=== PATIENT | female | born 1955 | race Caucasian/White ===

== ENCOUNTER → 2019-11-23 | Outpatient (REF) | payer OTHER ==
[2019-11-27 14:07] LABS: ANTI-SACCHAROMYCES CEREV. IgA <20.0 Units (0.0-24.9); ANTI-SACCHAROMYCES CEREV. IgG <20.0 Units (0.0-24.9); TISSUE TRANSGLUTAMINASE IgA <2 U/mL (0-3)
== END ==
LOC: M LAB REF 17:12
PROVIDERS: ATTEND Nurse Practitioner Adult Health
DX: R19.7 Diarrhea, unspecified (principal)

== ENCOUNTER → 2020-05-23 | Outpatient (REF) | payer OTHER | LOC: M LAB REF 11:27 | PROVIDERS: ATTEND Internal Medicine Gastroenterology | DX: R19.7 Diarrhea, unspecified (principal) ==

== ENCOUNTER → 2020-05-28 | Outpatient (CLI) | payer OTHER ==
[~2020-05-28] MED LIST: GASTROGRAFIN SOLUTION 30ML (Q9963) As Ordered ONE; ISOVUE-370 76% 100ML VIAL As Ordered ONE
--- NOTE | 2020-05-29 05:29 | REP ---
INDICATION: DIVERTICULITIS, LLQ PAIN. COMPARISON: 12/19/2007 TECHNIQUE: Axial contrast-enhanced images from the lung bases to the pubic symphysis using 100 cc Isovue 370 intravenous contrast material. Coronal and sagittal reformations obtained.. This CT examination was performed using the following dose reduction techniques: Automated exposure control, adjustment of mA and/or kv according to the patient's size, and the use of iterative reconstruction technique. FINDINGS: Liver suggests fatty infiltration without focal hepatic lesion. Spleen, bilateral adrenal glands and kidneys are normal. Evidence for prior cholecystectomy. Stable 2.4 cm cystic lesion just inferior to the mid pancreatic body again noted. There is a very subtle area of pericolonic stranding surrounding diverticula at the level of the mid/distal sigmoid colon (images 113-118) which may reflect a mild acute or resolving diverticulitis. Remainder of the small and large bowel is unremarkable. Pelvis demonstrates normal bladder and age-appropriate uterus/adnexa with subtle heterogeneity to the myometrium suggesting the possibility of myomatous changes. No ascites. No free air. No intraperitoneal or retroperitoneal adenopathy. Abdominal aorta and vasculature appear normal. Musculoskeletal structures are intact and without acute osseous abnormality. IMPRESSION: 1. Very subtle findings involving the mid/distal sigmoid colon suggest a mild acute or resolving diverticulitis without associated abnormalities. No evidence for obstruction, perforation, or drainable collection/abscess. 2. Possible myomatous changes to the uterus. 3. Stable 2.4 cm cyst inferior to the mid pancreatic body unchanged compared to 2007. <Electronically signed by Ronald Truong > 05/29/20 0525
== END ==
LOC: M RAD 13:51
PROVIDERS: ATTEND Internal Medicine Gastroenterology
DX: K57.92 Diverticulitis of intestine, part unspecified, without perforation or abscess without bleeding (principal); R10.32 Left lower quadrant pain

== ENCOUNTER → 2020-09-22 | Outpatient (CLI) | payer OTHER ==
[~2020-09-22] MED LIST changes: +AMLO1TAB24 PO; +DERM1TAB2 PO; -GASTROGRAFIN SOLUTION 30ML (Q9963) As Ordered ONE; -ISOVUE-370 76% 100ML VIAL As Ordered ONE; +METO1TAB7 PO
== END ==
LOC: M LABSMTC 09:23
PROVIDERS: ATTEND Anesthesiology
DX: Z01.812 Encounter for preprocedural laboratory examination (principal); Z20.822 Contact with and (suspected) exposure to COVID-19

== ENCOUNTER 2020-09-27 09:17 | Day surgery (SDC) | payer OTHER ==
[~2020-09-27] VITALS: Ht 160 cm; Wt 74.8 kg
[~2020-09-27 09:17] MED LIST changes: +LIDOCAINE 2% 100MG/5ML SDV (FOR ANES.) As Ordered ONE; +NS 1,000 ML IV ONE; +propofoL 200 MG/20 ML VIAL As Ordered ONE
--- NOTE | 2020-09-27 11:14 | ROOR ---
Patient Name: Rivka Dallas Procedure Date: 09/27/2020 10:47 AM Date of : 1955 Age: 64 Room: [facility] Gender: Female Note Status: Finalized Procedure: Colonoscopy Indications: Abnormal CT of the GI tract Providers: Myles MCNEAL MD Referring MD: Stephanie Albrecht NP Requesting Provider: Medicines: Monitored Anesthesia Care Complications: No immediate complications. Procedure: Pre-Anesthesia Assessment: - The heart rate, respiratory rate, oxygen saturations, blood pressure, adequacy of pulmonary ventilation, and response to care were monitored throughout the procedure. The Colonoscope was introduced through the anus and advanced to the terminal ileum, with identification of the appendiceal orifice and IC valve. The colonoscopy was performed with difficulty due to multiple diverticula in the colon. The patient tolerated the procedure well. The quality of the bowel preparation was good. Findings: The perianal and digital rectal examinations were normal. Multiple small and large-mouthed diverticula were found in the sigmoid colon. There was narrowing of the colon in association with the diverticular opening. Biopsies were taken with a cold forceps for histology. A 5 mm polyp was found in the ascending colon. The polyp was sessile. The polyp was removed with a cold snare. Resection and retrieval were complete. Internal hemorrhoids were found during retroflexion. The hemorrhoids were moderate. The exam was otherwise without abnormality on direct and retroflexion views. Impression: - Moderate diverticulosis in the sigmoid colon. There was narrowing/myomatous hypertrophy of the colon in association with the diverticular opening. Biopsied to r/o adenomatous changes. - One 5 mm polyp in the ascending colon, removed with a cold snare. Resected and retrieved. - Internal hemorrhoids. - The examination was otherwise normal on direct and retroflexion views. Recommendation: - Use fiber, for example Citrucel, Fibercon, Konsyl or Metamucil. - Miralax 1 capful (17 grams) in 8 ounces of water PO daily. - Telephone endoscopist for pathology results in 2 weeks. - Repeat colonoscopy for surveillance based on pathology results. - (typically 3-5 yrs, however await pathology) Procedure Code(s): --- Professional --- 11886, Colonoscopy, flexible; with removal of tumor(s), polyp(s), or other lesion(s) by snare technique 67540, 59, Colonoscopy, flexible; with biopsy, single or multiple Diagnosis Code(s): --- Professional --- K64.8, Other hemorrhoids K63.5, Polyp of colon K57.30, Diverticulosis of large intestine without perforation or abscess without bleeding R93.3, Abnormal findings on diagnostic imaging of other parts of digestive tract CPT copyright 2019 [employer]. All rights reserved. The codes documented in this report are preliminary and upon graphic specialist review may be revised to meet current compliance requirements. Myles Mcneal MD Myles MCNEAL MD 09/27/2020 11:13:50 AM Electronically signed by Myles MCNEAL MD Number of Addenda: 0 Note Initiated On: 09/27/2020 10:47 AM Estimated Blood Loss: Estimated blood loss: none.
[2020-09-27 11:40] VITALS: BP 156/95
== END 2020-09-27 11:45 | disposition home or self-care (01) ==
LOC: M OPP 09:17
PROVIDERS: ATTEND Internal Medicine Gastroenterology
DX: Z12.11 Encounter for screening for malignant neoplasm of colon (principal); Z86.010 Personal history of colon polyps; K64.8 Other hemorrhoids; Z79.899 Other long term (current) drug therapy; Z91.048 Other nonmedicinal substance allergy status; K63.5 Polyp of colon

== ENCOUNTER → 2021-05-13 | Outpatient (REF) | payer OTHER ==
[~2021-05-13] MED LIST changes: -LIDOCAINE 2% 100MG/5ML SDV (FOR ANES.) As Ordered ONE; -NS 1,000 ML IV ONE; -propofoL 200 MG/20 ML VIAL As Ordered ONE
== END ==
LOC: M LAB REF 12:15
PROVIDERS: ATTEND Nurse Practitioner Adult Health
DX: I12.9 Hypertensive chronic kidney disease with stage 1 through stage 4 chronic kidney disease, or unspecified chronic kidney disease (principal); N18.31 Chronic kidney disease, stage 3a

== ENCOUNTER → 2021-05-21 | Outpatient (CLI) | payer OTHER ==
--- NOTE | 2021-05-21 13:55 | REP ---
INDICATION: PAIN. COMPARISON: None. TECHNIQUE: Four views each ankle FINDINGS: Bilateral: No acute fracture or destructive osseous lesion. The mortise is intact. IMPRESSION: Within normal limits bilateral <Electronically signed by Rian Sanders > 05/21/21 [id number]
--- NOTE | 2021-05-21 14:06 | REP ---
INDICATION: PAIN. COMPARISON: None. TECHNIQUE: Four views each foot FINDINGS: There is asymmetric joint space narrowing involving the 1st metatarsophalangeal joint of each foot. The remainder of the joint spaces are symmetric and well maintained bilaterally. There is no acute fracture, dislocation, or subluxation bilaterally. IMPRESSION: Chronic changes bilaterally as described above. <Electronically signed by Rian Sanders > 05/21/21 [id number]
== END ==
LOC: M WUC 12:17
PROVIDERS: ATTEND Nurse Practitioner Adult Health
DX: M19.071 Primary osteoarthritis, right ankle and foot (principal); M19.072 Primary osteoarthritis, left ankle and foot; M25.572 Pain in left ankle and joints of left foot; M25.571 Pain in right ankle and joints of right foot

== ENCOUNTER → 2021-05-21 | Outpatient (REF) | payer OTHER | LOC: M LAB REF 18:15 | PROVIDERS: ATTEND Nurse Practitioner Adult Health | DX: M25.572 Pain in left ankle and joints of left foot (principal) ==

== ENCOUNTER → 2021-05-22 | Outpatient (REF) | payer OTHER | LOC: M LAB REF 11:39 | PROVIDERS: ATTEND Nurse Practitioner Adult Health | DX: R31.21 Asymptomatic microscopic hematuria (principal) ==

== ENCOUNTER → 2021-05-28 | Outpatient (REF) | payer OTHER | LOC: M LAB REF 12:10 | PROVIDERS: ATTEND Nurse Practitioner Adult Health | DX: R31.21 Asymptomatic microscopic hematuria (principal) ==

== ENCOUNTER → 2021-06-04 | Outpatient (REF) | payer OTHER | LOC: M LAB REF 12:15 | PROVIDERS: ATTEND Nurse Practitioner Adult Health | DX: R31.21 Asymptomatic microscopic hematuria (principal) ==

== ENCOUNTER → 2021-08-14 | Outpatient (CLI) | payer OTHER | LOC: M WUC 10:34 | PROVIDERS: ATTEND Nurse Practitioner Adult Health | DX: R09.89 Other specified symptoms and signs involving the circulatory and respiratory systems (principal) ==

== ENCOUNTER → 2022-05-14 | Outpatient (REF) | payer OTHER ==
[2022-05-14 19:11] LABS: BACTERIA, URINE SMALL AMOUNT; HYALINE CAST, URINE NONE SEEN /lpf (0-1); MUCUS, URINE SMALL AMOUNT (NEGATIVE); SQUAMOUS EPITHELIAL CELL URINE MOD AMOUNT /hpf (SMALL AMT)
== END ==
LOC: M LAB REF 16:05
PROVIDERS: ATTEND Nurse Practitioner Adult Health
DX: N39.0 Urinary tract infection, site not specified (principal)

== ENCOUNTER → 2022-06-17 | Outpatient (CLI) | payer OTHER | LOC: M WHC 13:48 | PROVIDERS: ATTEND Nurse Practitioner Adult Health | DX: N95.0 Postmenopausal bleeding (principal); R93.89 Abnormal findings on diagnostic imaging of other specified body structures ==

== ENCOUNTER → 2022-06-24 | Outpatient (REF) | payer OTHER | LOC: M SFHCWAGY 10:22 | PROVIDERS: ATTEND Specialist | DX: N95.0 Postmenopausal bleeding (principal) ==

== ENCOUNTER → 2023-01-26 | Outpatient (CLI) | payer OTHER ==
[~2023-01-26] MED LIST changes: +ISOVUE-300 61% 100ML VIAL ONE
== END ==
LOC: M PLAIMG 07:52
PROVIDERS: ATTEND Nurse Practitioner Adult Health
DX: R22.1 Localized swelling, mass and lump, neck (principal)
CPT/HCPCS: 70491; Q9967

== ENCOUNTER 2024-07-14 09:51 | Outpatient (RCR) | payer OTHER ==
[~2024-07-14 09:51] MED LIST changes: -ISOVUE-300 61% 100ML VIAL ONE
== END 2024-07-18 ==
LOC: M PT 09:51
PROVIDERS: ATTEND Student in an Organized Health Care Education/Training Program
DX: M79.672 Pain in left foot (principal); M76.62 Achilles tendinitis, left leg; S90.32XD Contusion of left foot, subsequent encounter